=== PATIENT | male | born 1980 | race African-American/Black ===

== ENCOUNTER 2016-10-02 15:49 | Emergency (ER) | payer BC ==
[~2016-10-02] VITALS: Ht 190.5 cm; Wt 141.0 kg
[~2016-10-02 15:49] MED LIST: AMOXICILLIN500 MG PO; BACTRIM DS1 TAB PO; DILAUDID 2MG2 MG/TAB PO; DOXYCYCL HYC100 M4 PO; FLEXERIL PO; IBUPROFEN600 MG PO; KEFLEX500 MG PO; NAPROSYN500 MG PO; NO HOME MEDS; PERCOCET 5/325M1 TAB PO; TAM75CAP PO; TORADOL PO; ULTRAM50 M1 PO
[2016-10-02] MEDS ORDERED: FLEXERIL5 M1 PO (16:14)
[2016-10-02] MEDS ORDERED: FLEXERIL PO (16:52)
[2016-10-02] MEDS ORDERED: NAPROSYN500 MG PO (16:52)
[2016-10-02 17:05] VITALS: BP 149/74
== END 2016-10-02 17:05 | disposition home or self-care (01) | DRG 556 ==
LOC: ED 15:49
DX: M25.511 Pain in right shoulder (principal); M79.1 Myalgia; Z85.47 Personal history of malignant neoplasm of testis

== ENCOUNTER 2017-07-11 23:59 | Emergency (ER) | payer BC ==
[~2017-07-11] VITALS: Ht 190.5 cm; Wt 153.2 kg
[~2017-07-11 23:59] MED LIST changes: +FLEXERIL5 M1 PO
[2017-07-12 00:56] LABS: INFLUENZA A NONE DETECTED (NONE DETECT)
[2017-07-12 00:57] LABS: INFLUENZA B NONE DETECTED (NONE DETECT)
[2017-07-12 01:39] VITALS: BP 137/87
== END 2017-07-12 01:51 | disposition home or self-care (01) | DRG 392 ==
LOC: ED 23:59
PROVIDERS: Emergency Medicine
DX: R11.2 Nausea with vomiting, unspecified (principal); M79.1 Myalgia; R50.9 Fever, unspecified; R05 Cough

== ENCOUNTER 2018-11-30 14:04 | Emergency (ER) | payer SELFPAY ==
[~2018-11-30] VITALS: Ht 190.5 cm; Wt 130.0 kg
[2018-11-30] MEDS ORDERED: CYCLOBENZAPR5 MG PO (14:16)
[2018-11-30] MEDS ORDERED: MOTRIN400 MG PO (14:16)
[2018-11-30 14:30] VITALS: BP 152/92
== END 2018-11-30 14:30 | disposition home or self-care (01) | DRG 563 ==
LOC: ED 14:04
DX: S46.911A Strain of unspecified muscle, fascia and tendon at shoulder and upper arm level, right arm, initial encounter (principal); X58.XXXA Exposure to other specified factors, initial encounter